=== PATIENT | male | born 1955 | race Caucasian/White ===

== ENCOUNTER 2021-10-25 02:35 | Inpatient (IN) | payer MEDICAID ==
[~2021-10-25] VITALS: Ht 157.5 cm; Wt 100.4 kg
[2021-10-25] MEDS ORDERED: dilTIAZem 25 MG/5 ML VIAL IV ONE ×2 (02:45→02:47)
[2021-10-25 03:27] LABS: Basophils # (auto) 0 10 ^3/uL (0-0.2); Eosinophils # (auto) 0.2 10 ^3/uL (0-0.8); Hemoglobin 13.8 g/dL (13.5-17.5); Mean Corpuscular Hemoglobin 26.8 pg (28.0-32.0); Mean Corpuscular Hgb Conc. 32.8 g/dL (32.0-36.0); Neutrophils # (auto) 5.6 10 ^3/uL (1.6-8.6); White Blood Cell 8.6 10^3/uL (4.4-10.8)
[2021-10-25 03:29] LABS: Basophils % (auto) 0.6 % (0.0-2.0); Eosinophils % (auto) 2.2 % (0.0-7.0); Lymphocytes % (auto) 22.8 % (10.0-50.0); Mean Corpuscular Volume 81.6 fL (80.0-100.0); Monocytes # (auto) 0.7 10 ^3/uL (0-1.3); Monocytes % (auto) 8.7 % (0.0-12.0); Neutrophils % (auto) 65.7 % (37.0-80.0); Nucleated Red Blood Cells % 0.2 %; Red Blood Cells 5.15 10^6/uL (4.5-5.90); Red Cell Distribution Width 15.1 % (11.8-14.3)
[2021-10-25 03:43] LABS: INR 1.01 (0.9-1.15); Partial Thromboplastin Time 25.3 sec (23.6-33.0)
[2021-10-25 03:46] LABS: Albumin 3.9 g/dL (3.4-5.0); Calcium 9.2 mg/dL (8.5-10.1)
[2021-10-25 03:52] LABS: BUN/Creatinine Ratio 15.9; Bilirubin, Total 0.4 mg/dL (0.2-1.0); Total Protein 7.5 g/dL (6.4-8.2)
[2021-10-25] MEDS ORDERED: NITROGLYCERIN 0.4 MG SL TAB SL PRN (05:15)
[2021-10-25] MEDS ORDERED: ONDANSETRON HCL 4 MG/2 ML VIAL IV PRN (05:15)
[2021-10-25] MEDS ORDERED: DEXTROSE (50%) 50ML SYRG IV PRN (05:15)
[2021-10-25] MEDS ORDERED: TEMAZEPAM 15 MG CAP PO PRN (05:15)
[2021-10-25] MEDS ORDERED: MORPHINE SULFATE INJECTION 2 MG/ML SYRG IV PRN (05:15)
[2021-10-25] MEDS ORDERED: CARBIDOPA W LEVODOPA 25/100mg TABLET PO SCH (06:00)
[2021-10-25] MEDS: ACCU-CHEK COMFORT CURVE STRIP VI SCH ×4 (06:37→22:34)
[2021-10-25] MEDS: InsuLIN REG 1unit/0.01ml Soln (100units/ml) SC SCH ×4 (06:37→22:25)
[2021-10-25] MEDS: ACETAMINOPHEN 325 MG TAB PO PRN ×2 (07:34→10:56)
[2021-10-25 10:00] VITALS: BP 142/99
[2021-10-25] MEDS ORDERED: dilTIAZem 120MG ER CAP PO SCH (10:00)
[2021-10-25] MEDS ORDERED: LISINOPRIL 20 MG TAB PO SCH (10:00)
[2021-10-25] MEDS ORDERED: ENOXAPARIN SOD 40 MG/0.4 ML SYRINGE SC SCH (10:00)
[2021-10-25] MEDS ORDERED: METO25TA5 PO (10:31)
[2021-10-25] MEDS ORDERED: ALOG1TAB2 PO (10:31)
[2021-10-25] MEDS ORDERED: INSU1INJ19 SC (10:31)
[2021-10-25] MEDS ORDERED: HYDR-4833 PO (10:31)
[2021-10-25] MEDS ORDERED: DIPH50CA31 PO (10:31)
[2021-10-25] MEDS ORDERED: ALBUAER3 IN (10:31)
[2021-10-25] MEDS ORDERED: TAMS0.4C36 PO (10:31)
[2021-10-25] MEDS ORDERED: ROPI1TAB4 PO (10:31)
[2021-10-25] MEDS ORDERED: DULO60CA PO (10:31)
[2021-10-25] MEDS ORDERED: ARIP1TAB7 PO (10:31)
[2021-10-25] MEDS ORDERED: OMEP20TA PO (10:31)
[2021-10-25] MEDS ORDERED: DILT60TA PO (10:31)
[2021-10-25] MEDS ORDERED: LISI40TA11 PO (10:31)
[2021-10-25] MEDS ORDERED: FURO40TA4 PO (10:31)
[2021-10-25] MEDS ORDERED: METH500T22 PO (10:31)
[2021-10-25] MEDS: METOPROLOL TARTRATE 25 MG TAB PO SCH ×2 (10:46→22:30)
[2021-10-25] MEDS ORDERED: HYDROcodone-ACET 5/325MG TAB PO PRN (11:45)
[2021-10-25] MEDS ORDERED: ENOXAPARIN SOD 60 MG/0.6 ML SYRINGE SC ONE (12:00)
[2021-10-25] MEDS ORDERED: APIX5TAB OR (12:01)
[2021-10-25 13:00] VITALS: BP 146/116
[2021-10-25] MEDS: ROPINIROLE 1 MG PO SCH ×2 (14:00→22:00)
[2021-10-25 17:00] VITALS: BP 123/76
[2021-10-25] MEDS ORDERED: TAMSULOSIN HYDROCHLORIDE 0.4 MG CAP PO SCH (18:00)
[2021-10-25 19:30] VITALS: BP 143/67
[2021-10-25 21:27] VITALS: BP 143/67
[2021-10-25 22:00] VITALS: BP 143/67
[2021-10-25] MEDS ORDERED: ENOXAPARIN SOD 100 MG/1 ML SYRINGE SC SCH (22:00)
[2021-10-26] MEDS ORDERED: PANTOPRAZOLE 40 MG TAB PO SCH (06:00)
== END 2021-10-25 23:49 | disposition home or self-care (01) | DRG 201 ==
LOC: ER 02:35 → EDBD 02:35 → TELE 05:13 → TELE-WESTW 10:35
PROVIDERS: ADMIT Nurse Practitioner; ATTEND Internal Medicine
DX: I48.91 Unspecified atrial fibrillation (principal); E11.22 Type 2 diabetes mellitus with diabetic chronic kidney disease; G20 Parkinson's disease; E11.9 Type 2 diabetes mellitus without complications; I10 Essential (primary) hypertension; N18.9 Chronic kidney disease, unspecified; E66.01 Morbid (severe) obesity due to excess calories; F31.9 Bipolar disorder, unspecified; I12.9 Hypertensive chronic kidney disease with stage 1 through stage 4 chronic kidney disease, or unspecified chronic kidney disease; K21.9 Gastro-esophageal reflux disease without esophagitis; N18.30 Chronic kidney disease, stage 3 unspecified; N40.0 Benign prostatic hyperplasia without lower urinary tract symptoms; Z68.39 Body mass index [BMI] 39.0-39.9, adult; Z88.8 Allergy status to other drugs, medicaments and biological substances; Z20.822 Contact with and (suspected) exposure to COVID-19
CPT/HCPCS: 36415; 71045; 80053; 82962; 83880; 84443; 84484; 85025; 85610; 85730; 87426; 93005; 93306; 96372; 96374; 99291; G0378; J1815

== ENCOUNTER 2022-12-19 15:11 | Inpatient (IN) | payer BC, MEDICAID ==
[~2022-12-19] VITALS: Ht 157.5 cm; Wt 101.3 kg
[~2022-12-19 15:11] MED LIST: ALBUAER3 IN; ALOG1TAB2 PO; APIX5TAB OR; ARIP1TAB7 PO; DILT60TA PO; DIPH50CA31 PO; DULO60CA PO; FURO40TA4 PO; HYDR-4833 PO; INSU1INJ19 SC; LISI40TA11 PO; METH500T22 PO; METO25TA5 PO; OMEP20TA PO; ROPI1TAB4 PO; TAMS0.4C36 PO
[2022-12-19] MEDS ORDERED: NOREPINEPHRINE 8 MG/250ML KIT 250 ML IV ONE (15:41)
[2022-12-19] MEDS: NOREPINEPHRINE 8 MG/250ML KIT 250 ML IV SCH (15:51)
[2022-12-19 16:56] LABS: Monocytes # (auto) 1.2 10 ^3/uL (0-1.3); Monocytes % (auto) 9.6 % (0.0-12.0); Neutrophils # (auto) 8.5 10 ^3/uL (1.6-8.6); Neutrophils % (auto) 70.7 % (37.0-80.0); Nucleated Red Blood Cells % 0.2 %
[2022-12-19 16:58] LABS: Basophils # (auto) 0.1 10 ^3/uL (0-0.2); Basophils % (auto) 0.5 % (0.0-2.0); Eosinophils # (auto) 0.4 10 ^3/uL (0-0.8); Eosinophils % (auto) 3.6 % (0.0-7.0); Hemoglobin 10.8 g/dL (13.5-17.5); Lymphocytes # (auto) 1.9 10 ^3/uL (0.4-5.4); Lymphocytes % (auto) 15.6 % (10.0-50.0); Mean Corpuscular Hemoglobin 24.3 pg (28.0-32.0); Mean Corpuscular Hgb Conc. 31.6 g/dL (32.0-36.0); Mean Corpuscular Volume 76.9 fL (80.0-100.0); Red Blood Cells 4.42 10^6/uL (4.5-5.90); Red Cell Distribution Width 17.6 % (11.8-14.3)
[2022-12-19 17:12] LABS: Albumin 3.3 g/dL (3.4-5.0); Anion Gap 10 (5-15); BUN/Creatinine Ratio 14.1; Blood Urea Nitrogen 61 mg/dL (7-18); Calcium 9.9 mg/dL (8.5-10.1); Carbon Dioxide 29 mmol/L (21-32); Chloride 90 mmol/L (98-107); GFR African American 18 mL/min; GFR Non-African American 15 mL/min; Glucose 161 mg/dL (74-106); Potassium 3.6 mmol/L (3.5-5.1); Sodium 129 mmol/L (136-145)
[2022-12-19 17:15] LABS: Alanine Aminotransferase < 6 U/L (16-61); Alkaline Phosphatase 87 U/L (45-117); Aspartate Aminotransferase 7 U/L (15-37); Bilirubin, Total 0.5 mg/dL (0.2-1.0); Total Protein 5.7 g/dL (6.4-8.2)
[2022-12-19] MEDS ORDERED: CARB25TA75 PO (20:24)
[2022-12-19] MEDS ORDERED: DEXTROSE (50%) 50ML SYRG IV PRN (20:45)
[2022-12-19] MEDS ORDERED: MORPHINE SULFATE INJ 2 MG/ml SYRG IV PRN (20:45)
[2022-12-19] MEDS ORDERED: NITROGLYCERIN 0.4 MG SL TAB SL PRN (20:45)
[2022-12-19] MEDS ORDERED: ONDANSETRON HCL 4 MG/2 ML VIAL IV PRN (20:45)
[2022-12-19] MEDS: APIXABAN 5 MG TAB PO SCH (22:24)
[2022-12-19] MEDS: CARBIDOPA W LEVODOPA 25/100mg TABLET PO SCH (22:24)
[2022-12-19] MEDS: ACCU-CHEK COMFORT CURVE STRIP VI SCH (22:35)
[2022-12-19] MEDS: InsuLIN REG 1unit/0.01ml Soln (100units/ml) SC SCH (22:35)
[2022-12-19 23:04] LABS: Urine Bacteria FEW /hpf (None Seen); Urine Blood Negative /uL (Negative); Urine Hyaline Cast FEW /lpf (0 - 2); Urine Specific Gravity 1.008 (1.001-1.035); Urine WBC 1 /hpf (0 - 3)
[2022-12-19] MEDS: ACETAMINOPHEN 325 MG TAB PO PRN (23:51)
[2022-12-20 05:00] LABS: Eosinophils # (auto) 0.6 10 ^3/uL (0-0.8); Hemoglobin 11.8 g/dL (13.5-17.5); Mean Corpuscular Volume 75.9 fL (80.0-100.0)
[2022-12-20 05:01] LABS: Basophils # (auto) 0.1 10 ^3/uL (0-0.2); Basophils % (auto) 0.5 % (0.0-2.0); Eosinophils % (auto) 4.8 % (0.0-7.0); Hematocrit 36.7 % (41.0-53.0); Lymphocytes # (auto) 1.5 10 ^3/uL (0.4-5.4); Lymphocytes % (auto) 12.2 % (10.0-50.0); Mean Corpuscular Hemoglobin 24.3 pg (28.0-32.0); Mean Corpuscular Hgb Conc. 32.1 g/dL (32.0-36.0); Monocytes % (auto) 8.8 % (0.0-12.0); Neutrophils # (auto) 8.7 10 ^3/uL (1.6-8.6); Neutrophils % (auto) 73.7 % (37.0-80.0); Red Blood Cells 4.83 10^6/uL (4.5-5.90); Red Cell Distribution Width 17.5 % (11.8-14.3); White Blood Cell 11.9 10^3/uL (4.4-10.8)
[2022-12-20 05:11] LABS: Potassium 3.2 mmol/L (3.5-5.1)
[2022-12-20 05:15] LABS: Albumin 3.5 g/dL (3.4-5.0); BUN/Creatinine Ratio 16.7; Calcium 9.7 mg/dL (8.5-10.1)
[2022-12-20 05:28] LABS: Bilirubin, Total 0.4 mg/dL (0.2-1.0); Total Protein 6.3 g/dL (6.4-8.2)
[2022-12-20] MEDS ORDERED: FUROSEMIDE 40 MG TAB PO SCH (06:00)
[2022-12-20] MEDS: CARBIDOPA W LEVODOPA 25/100mg TABLET PO SCH ×3 (06:11→22:12)
[2022-12-20] MEDS: InsuLIN REG 1unit/0.01ml Soln (100units/ml) SC SCH ×4 (07:05→22:14)
[2022-12-20] MEDS: ACCU-CHEK COMFORT CURVE STRIP VI SCH ×4 (07:05→22:12)
[2022-12-20] MEDS: PANTOPRAZOLE 40 MG TAB PO SCH (10:52)
[2022-12-20] MEDS: APIXABAN 5 MG TAB PO SCH ×2 (10:52→22:12)
[2022-12-20] MEDS: ACETAMINOPHEN 325 MG TAB PO PRN ×2 (10:55→22:20)
[2022-12-20] MEDS: NOREPINEPHRINE 8 MG/250ML KIT 250 ML IV SCH (10:56)
[2022-12-20] MEDS: DULoxetine HCL 30 MG CAP PO SCH (11:47)
[2022-12-20 18:16] LABS: Calcium 9.8 mg/dL (8.5-10.1); Potassium 3.2 mmol/L (3.5-5.1)
[2022-12-20 18:18] LABS: BUN/Creatinine Ratio 20.5
[2022-12-21] MEDS ORDERED: METOPROLOL TARTRATE 1MG/1ML-5ML VIAL IV ONE (03:30)
[2022-12-21] MEDS: AMIODARONE HCL 200 MG TAB PO SCH ×2 (04:09→22:00)
[2022-12-21] MEDS ORDERED: AMIODARONE HCL 150 MG in D5W 5% 100 ML IV ONE (05:30)
[2022-12-21 05:36] LABS: BUN/Creatinine Ratio 19.8; Potassium 3.3 mmol/L (3.5-5.1)
[2022-12-21] MEDS ORDERED: AMIODARONE HCL (50 MG/ ML) 3 ML VIAL IV ONE (05:38)
[2022-12-21] MEDS ORDERED: AMIODARONE 450mg/250ml AE 250 ML IV SCH (06:30)
[2022-12-21] MEDS: CARBIDOPA W LEVODOPA 25/100mg TABLET PO SCH ×3 (06:33→22:48)
[2022-12-21] MEDS: ACCU-CHEK COMFORT CURVE STRIP VI SCH ×4 (06:53→22:51)
[2022-12-21] MEDS: InsuLIN REG 1unit/0.01ml Soln (100units/ml) SC SCH ×4 (06:54→22:53)
[2022-12-21] MEDS ORDERED: dilTIAZem 25 MG/5 ML VIAL IV ONE (09:00)
[2022-12-21] MEDS: PANTOPRAZOLE 40 MG TAB PO SCH (09:53)
[2022-12-21] MEDS: FUROSEMIDE 40 MG TAB PO SCH (09:53)
[2022-12-21] MEDS: APIXABAN 5 MG TAB PO SCH ×2 (09:53→22:48)
[2022-12-21] MEDS: DULoxetine HCL 30 MG CAP PO SCH (09:53)
[2022-12-21] MEDS: POTASSIUM CHL 20MEQ/100ML 100 ML IV SCH ×3 (10:51→13:45)
[2022-12-21] MEDS: AMIODARONE 450mg/250ml AE 250 ML IV SCH (14:35)
[2022-12-21] MEDS: NOREPINEPHRINE 8 MG/250ML KIT 250 ML IV SCH ×2 (16:27→19:58)
[2022-12-21] MEDS: CHOLECALCIFEROL (VITD3) 1,000UNIT=25mCg TAB PO SCH (20:10)
[2022-12-21] MEDS ORDERED: LIDOCAINE 1% HCL (LOCAL ANESTH.) INJ 20ML MDV ONE (21:58)
[2022-12-21] MEDS ORDERED: fentaNYL CITRATE 100 MCG/2 ML VL IV ONE (22:30)
[2022-12-21] MEDS ORDERED: ONDANSETRON HCL 4 MG/2 ML VIAL IV ONE (22:30)
[2022-12-21 23:37] VITALS: BP 101/63
[2022-12-21 23:52] VITALS: BP 95/59
[2022-12-22] VITALS (67 sets, daily range): BP systolic 88–141; BP diastolic 41–75
[2022-12-22] MEDS: AMIODARONE 450mg/250ml AE 250 ML IV SCH ×2 (03:30→17:00)
[2022-12-22 03:32] LABS: Basophils # (auto) 0 10 ^3/uL (0-0.2); Basophils % (auto) 0.4 % (0.0-2.0); Lymphocytes # (auto) 1.4 10 ^3/uL (0.4-5.4); Red Cell Distribution Width 17.3 % (11.8-14.3)
[2022-12-22 03:35] LABS: Eosinophils # (auto) 0.5 10 ^3/uL (0-0.8); Eosinophils % (auto) 5.9 % (0.0-7.0); Hematocrit 34.4 % (41.0-53.0); Hemoglobin 10.8 g/dL (13.5-17.5); Lymphocytes % (auto) 14.9 % (10.0-50.0); Mean Corpuscular Hemoglobin 24.3 pg (28.0-32.0); Mean Corpuscular Hgb Conc. 31.4 g/dL (32.0-36.0); Mean Corpuscular Volume 77.3 fL (80.0-100.0); Monocytes % (auto) 10.9 % (0.0-12.0); Neutrophils # (auto) 6.3 10 ^3/uL (1.6-8.6); Neutrophils % (auto) 67.9 % (37.0-80.0); Nucleated Red Blood Cells % 0.1 %; Red Blood Cells 4.45 10^6/uL (4.5-5.90); White Blood Cell 9.2 10^3/uL (4.4-10.8)
[2022-12-22 03:47] LABS: BUN/Creatinine Ratio 17.7; Calcium 9.3 mg/dL (8.5-10.1); Magnesium 2.7 mg/dL (1.6-2.6); Potassium 3.5 mmol/L (3.5-5.1)
[2022-12-22] MEDS: ACETAMINOPHEN 325 MG TAB PO PRN ×2 (04:44→21:59)
[2022-12-22] MEDS: CARBIDOPA W LEVODOPA 25/100mg TABLET PO SCH ×3 (06:19→21:58)
[2022-12-22] MEDS: ACCU-CHEK COMFORT CURVE STRIP VI SCH ×4 (06:26→21:59)
[2022-12-22] MEDS: InsuLIN REG 1unit/0.01ml Soln (100units/ml) SC SCH ×4 (06:26→22:12)
[2022-12-22] MEDS: FUROSEMIDE 40 MG TAB PO SCH (09:44)
[2022-12-22] MEDS: PANTOPRAZOLE 40 MG TAB PO SCH (09:44)
[2022-12-22] MEDS: DULoxetine HCL 30 MG CAP PO SCH (09:44)
[2022-12-22] MEDS: CHOLECALCIFEROL (VITD3) 1,000UNIT=25mCg TAB PO SCH (09:45)
[2022-12-22] MEDS: APIXABAN 5 MG TAB PO SCH ×2 (09:45→21:57)
[2022-12-22] MEDS: POTASSIUM CHL 20MEQ/100ML 100 ML IV SCH ×2 (12:40→15:38)
[2022-12-22] MEDS: DOCUSATE SOD 100 MG CAP PO PRN (16:40)
[2022-12-23] VITALS (30 sets, daily range): BP systolic 88–132; BP diastolic 51–85
[2022-12-23] MEDS ORDERED: METOPROLOL TARTRATE 1MG/1ML-5ML VIAL IV ONE (04:15)
[2022-12-23] MEDS: ACCU-CHEK COMFORT CURVE STRIP VI SCH ×4 (06:33→21:32)
[2022-12-23] MEDS: CARBIDOPA W LEVODOPA 25/100mg TABLET PO SCH ×3 (06:33→21:23)
[2022-12-23] MEDS: InsuLIN REG 1unit/0.01ml Soln (100units/ml) SC SCH ×4 (06:37→21:33)
[2022-12-23] MEDS: APIXABAN 5 MG TAB PO SCH ×2 (09:01→21:23)
[2022-12-23] MEDS: PANTOPRAZOLE 40 MG TAB PO SCH (09:02)
[2022-12-23] MEDS: CHOLECALCIFEROL (VITD3) 1,000UNIT=25mCg TAB PO SCH (09:02)
[2022-12-23] MEDS: FUROSEMIDE 40 MG TAB PO SCH (09:02)
[2022-12-23 09:31] LABS: Basophils # (auto) 0.1 10 ^3/uL (0-0.2); Monocytes # (auto) 0.8 10 ^3/uL (0-1.3)
[2022-12-23 09:34] LABS: Basophils % (auto) 0.6 % (0.0-2.0); Eosinophils # (auto) 0.5 10 ^3/uL (0-0.8); Eosinophils % (auto) 5.5 % (0.0-7.0); Hematocrit 37.4 % (41.0-53.0); Hemoglobin 11.8 g/dL (13.5-17.5); Lymphocytes # (auto) 1.7 10 ^3/uL (0.4-5.4); Lymphocytes % (auto) 17.8 % (10.0-50.0); Mean Corpuscular Hemoglobin 24.7 pg (28.0-32.0); Mean Corpuscular Hgb Conc. 31.6 g/dL (32.0-36.0); Monocytes % (auto) 8.7 % (0.0-12.0); Neutrophils # (auto) 6.4 10 ^3/uL (1.6-8.6); Neutrophils % (auto) 67.4 % (37.0-80.0); Nucleated Red Blood Cells % 0.3 %; Red Cell Distribution Width 17.6 % (11.8-14.3); White Blood Cell 9.5 10^3/uL (4.4-10.8)
[2022-12-23] MEDS: AMIODARONE 450mg/250ml AE 250 ML IV SCH (09:42)
[2022-12-23] MEDS: DULoxetine HCL 30 MG CAP PO SCH (09:42)
[2022-12-23 09:50] LABS: Albumin 3.4 g/dL (3.4-5.0); Calcium 9.8 mg/dL (8.5-10.1); Potassium 3.9 mmol/L (3.5-5.1)
[2022-12-23 09:56] LABS: BUN/Creatinine Ratio 16.8; Bilirubin, Total 0.3 mg/dL (0.2-1.0); Total Protein 6.4 g/dL (6.4-8.2)
[2022-12-23] MEDS ORDERED: LABETALOL HCL 5 MG/ML 4ML SYRINGE IV PRN (12:15)
[2022-12-23] MEDS: DOCUSATE SOD 100 MG CAP PO PRN (13:14)
[2022-12-23] MEDS: METOPROLOL TARTRATE 25 MG TAB PO SCH ×2 (13:14→21:23)
[2022-12-23] MEDS ORDERED: LACTULOSE 20Gm/30ML SOLN PO ONE (13:15)
[2022-12-23] MEDS: NOREPINEPHRINE 8 MG/250ML KIT 250 ML IV SCH (16:00)
[2022-12-23] MEDS: ACETAMINOPHEN 325 MG TAB PO PRN (20:29)
[2022-12-23] MEDS: LACTULOSE 20Gm/30ML SOLN PO SCH (21:24)
[2022-12-24 05:00] VITALS: BP 124/62
[2022-12-24] MEDS: CARBIDOPA W LEVODOPA 25/100mg TABLET PO SCH ×3 (06:09→21:19)
[2022-12-24] MEDS: ACCU-CHEK COMFORT CURVE STRIP VI SCH ×4 (06:16→21:31)
[2022-12-24] MEDS: InsuLIN REG 1unit/0.01ml Soln (100units/ml) SC SCH ×4 (06:17→21:33)
[2022-12-24 09:00] VITALS: BP 110/70
[2022-12-24] MEDS: LACTULOSE 20Gm/30ML SOLN PO SCH ×2 (09:45→21:22)
[2022-12-24] MEDS: PANTOPRAZOLE 40 MG TAB PO SCH (09:46)
[2022-12-24] MEDS: DULoxetine HCL 30 MG CAP PO SCH (09:46)
[2022-12-24] MEDS: METOPROLOL TARTRATE 25 MG TAB PO SCH ×2 (09:46→21:20)
[2022-12-24] MEDS: APIXABAN 5 MG TAB PO SCH ×2 (09:46→21:19)
[2022-12-24] MEDS: CHOLECALCIFEROL (VITD3) 1,000UNIT=25mCg TAB PO SCH (09:47)
[2022-12-24] MEDS: ACETAMINOPHEN 325 MG TAB PO PRN ×2 (09:57→20:44)
[2022-12-24 13:00] VITALS: BP 131/75
[2022-12-24] MEDS ORDERED: AMIODARONE HCL 200 MG TAB PO ONE (13:45)
[2022-12-24 17:00] VITALS: BP 141/60
[2022-12-24 21:28] VITALS: BP 136/74
[2022-12-25 04:26] VITALS: BP 104/63
[2022-12-25] MEDS: CARBIDOPA W LEVODOPA 25/100mg TABLET PO SCH ×3 (05:49→21:44)
[2022-12-25] MEDS: ACCU-CHEK COMFORT CURVE STRIP VI SCH ×4 (07:11→22:05)
[2022-12-25] MEDS: InsuLIN REG 1unit/0.01ml Soln (100units/ml) SC SCH ×4 (07:12→22:05)
[2022-12-25 07:18] LABS: Basophils # (auto) 0.1 10 ^3/uL (0-0.2); Monocytes # (auto) 1.1 10 ^3/uL (0-1.3); Monocytes % (auto) 9.4 % (0.0-12.0); Nucleated Red Blood Cells % 0.1 %
[2022-12-25 07:20] LABS: Basophils % (auto) 0.7 % (0.0-2.0); Eosinophils # (auto) 0.5 10 ^3/uL (0-0.8); Eosinophils % (auto) 4.6 % (0.0-7.0); Hematocrit 40.6 % (41.0-53.0); Hemoglobin 12.6 g/dL (13.5-17.5); Lymphocytes # (auto) 2.4 10 ^3/uL (0.4-5.4); Lymphocytes % (auto) 20.9 % (10.0-50.0); Mean Corpuscular Hemoglobin 24.2 pg (28.0-32.0); Neutrophils # (auto) 7.3 10 ^3/uL (1.6-8.6); Neutrophils % (auto) 64.4 % (37.0-80.0); Red Cell Distribution Width 17.4 % (11.8-14.3); White Blood Cell 11.3 10^3/uL (4.4-10.8)
[2022-12-25 07:39] LABS: BUN/Creatinine Ratio 16.2; Magnesium 1.9 mg/dL (1.6-2.6); Potassium 4.2 mmol/L (3.5-5.1)
[2022-12-25 08:15] VITALS: BP 101/65
[2022-12-25] MEDS: LACTULOSE 20Gm/30ML SOLN PO SCH ×2 (08:22→21:44)
[2022-12-25] MEDS: DULoxetine HCL 30 MG CAP PO SCH (08:23)
[2022-12-25] MEDS: AMIODARONE HCL 200 MG TAB PO SCH (08:23)
[2022-12-25] MEDS: METOPROLOL TARTRATE 25 MG TAB PO SCH ×2 (08:24→21:47)
[2022-12-25] MEDS: APIXABAN 5 MG TAB PO SCH ×2 (08:24→21:43)
[2022-12-25] MEDS: PANTOPRAZOLE 40 MG TAB PO SCH (08:24)
[2022-12-25] MEDS: CHOLECALCIFEROL (VITD3) 1,000UNIT=25mCg TAB PO SCH (08:25)
[2022-12-25] MEDS ORDERED: dilTIAZem 25 MG/5 ML VIAL IV ONE (12:30)
[2022-12-25] MEDS ORDERED: MAGNESIUM OXIDE 400 MG TAB PO ONE (12:30)
[2022-12-25 13:00] VITALS: BP 118/68
[2022-12-25 17:47] VITALS: BP 131/97
[2022-12-25 22:00] VITALS: BP 106/72
[2022-12-25] MEDS: ACETAMINOPHEN 325 MG TAB PO PRN (23:35)
[2022-12-26 05:00] VITALS: BP 107/73
[2022-12-26] MEDS: CARBIDOPA W LEVODOPA 25/100mg TABLET PO SCH ×3 (05:48→21:12)
[2022-12-26] MEDS: InsuLIN REG 1unit/0.01ml Soln (100units/ml) SC SCH ×4 (06:21→22:06)
[2022-12-26] MEDS: ACCU-CHEK COMFORT CURVE STRIP VI SCH ×4 (06:22→22:06)
[2022-12-26 09:07] VITALS: BP 127/60
[2022-12-26] MEDS: AMIODARONE HCL 200 MG TAB PO SCH (09:57)
[2022-12-26] MEDS: DULoxetine HCL 30 MG CAP PO SCH (09:58)
[2022-12-26] MEDS: PANTOPRAZOLE 40 MG TAB PO SCH (09:58)
[2022-12-26] MEDS: APIXABAN 5 MG TAB PO SCH ×2 (09:59→21:13)
[2022-12-26] MEDS: METOPROLOL TARTRATE 25 MG TAB PO SCH ×2 (10:00→21:12)
[2022-12-26] MEDS: LACTULOSE 20Gm/30ML SOLN PO SCH ×2 (10:00→21:13)
[2022-12-26] MEDS: CHOLECALCIFEROL (VITD3) 1,000UNIT=25mCg TAB PO SCH (10:04)
[2022-12-26 13:00] VITALS: BP 118/72
[2022-12-26 16:20] VITALS: BP 126/75
[2022-12-26 22:00] VITALS: BP 120/61
[2022-12-27] MEDS: ACETAMINOPHEN 325 MG TAB PO PRN (01:45)
[2022-12-27 05:00] VITALS: BP 134/65
[2022-12-27] MEDS: CARBIDOPA W LEVODOPA 25/100mg TABLET PO SCH ×2 (05:40→14:25)
[2022-12-27] MEDS: InsuLIN REG 1unit/0.01ml Soln (100units/ml) SC SCH ×2 (06:12→11:42)
[2022-12-27] MEDS: ACCU-CHEK COMFORT CURVE STRIP VI SCH ×2 (06:12→11:30)
[2022-12-27] MEDS: LACTULOSE 20Gm/30ML SOLN PO SCH (08:49)
[2022-12-27] MEDS: DULoxetine HCL 30 MG CAP PO SCH (08:50)
[2022-12-27] MEDS: CHOLECALCIFEROL (VITD3) 1,000UNIT=25mCg TAB PO SCH (08:50)
[2022-12-27] MEDS: PANTOPRAZOLE 40 MG TAB PO SCH (08:50)
[2022-12-27] MEDS: APIXABAN 5 MG TAB PO SCH (08:50)
[2022-12-27] MEDS: AMIODARONE HCL 200 MG TAB PO SCH (08:50)
[2022-12-27] MEDS: METOPROLOL TARTRATE 25 MG TAB PO SCH (08:51)
[2022-12-27 09:00] VITALS: BP 141/89
[2022-12-27 13:00] VITALS: BP 138/77
[2022-12-27] MEDS ORDERED: MET25T PO (13:10)
[2022-12-27 13:30] VITALS: BP 138/77
== END 2022-12-27 15:00 | disposition home health service (06) | DRG 314 ==
LOC: ER 15:11 → EDBD 15:11 → TELE 20:51 → ICU WEST 12-21 22:47 → TELE-WESTW 12-23 16:54
PROVIDERS: ADMIT Nurse Practitioner; ATTEND Internal Medicine
PROC: 02HV33Z Insertion of Infusion Device into Superior Vena Cava, Percutaneous Approach (ICD-10-PCS; principal; 2022-12-21)
PROC: B548ZZA Ultrasonography of Superior Vena Cava, Guidance (ICD-10-PCS; 2022-12-21)
DX: I95.9 Hypotension, unspecified (principal); N17.0 Acute kidney failure with tubular necrosis; I13.0 Hypertensive heart and chronic kidney disease with heart failure and stage 1 through stage 4 chronic kidney disease, or unspecified chronic kidney disease; I50.32 Chronic diastolic (congestive) heart failure; Z68.41 Body mass index [BMI] 40.0-44.9, adult; I48.91 Unspecified atrial fibrillation; D63.1 Anemia in chronic kidney disease; E11.22 Type 2 diabetes mellitus with diabetic chronic kidney disease; I25.10 Atherosclerotic heart disease of native coronary artery without angina pectoris; N18.31 Chronic kidney disease, stage 3a; G20 Parkinson's disease; F41.9 Anxiety disorder, unspecified; E66.9 Obesity, unspecified; D72.829 Elevated white blood cell count, unspecified; E87.6 Hypokalemia; E11.65 Type 2 diabetes mellitus with hyperglycemia; Z79.01 Long term (current) use of anticoagulants; Z79.4 Long term (current) use of insulin; Z88.8 Allergy status to other drugs, medicaments and biological substances
CPT/HCPCS: 36415; 71045; 76775; 80048; 80053; 81001; 82306; 82962; 83605; 83735; 83970; 84100; 84443; 84484; 85025; 87040; 87426; 93005; 93306; 97110; 97116; 97163; 97530; 99291; G0378; J1815; J2001; J2405; J3480; J7060

== ENCOUNTER 2023-02-14 18:14 | Inpatient (IN) | payer BC, MEDICAID ==
[~2023-02-14] VITALS: Ht 157.5 cm; Wt 90.0 kg
[~2023-02-14 18:14] MED LIST changes: +CARB25TA75 PO; +MET25T PO; -METO25TA5 PO
[2023-02-14] MEDS ORDERED: ONDANSETRON HCL 4 MG/2 ML VIAL IV ONE (19:30)
[2023-02-14] MEDS ORDERED: GLUCAGON EMERG KIT 1mg/1ml IV ONE (19:30)
[2023-02-14 19:50] LABS: Eosinophils # (auto) 0.3 10 ^3/uL (0-0.8); Mean Corpuscular Volume 74.4 fL (80.0-100.0); Monocytes # (auto) 0.9 10 ^3/uL (0-1.3); White Blood Cell 9.8 10^3/uL (4.4-10.8)
[2023-02-14 19:52] LABS: Basophils # (auto) 0 10 ^3/uL (0-0.2); Basophils % (auto) 0.5 % (0.0-2.0); Eosinophils % (auto) 3.3 % (0.0-7.0); Hematocrit 29.1 % (41.0-53.0); Hemoglobin 9.5 g/dL (13.5-17.5); Lymphocytes % (auto) 10.3 % (10.0-50.0); Mean Corpuscular Hemoglobin 24.2 pg (28.0-32.0); Mean Corpuscular Hgb Conc. 32.5 g/dL (32.0-36.0); Monocytes % (auto) 8.7 % (0.0-12.0); Neutrophils # (auto) 7.6 10 ^3/uL (1.6-8.6); Neutrophils % (auto) 77.2 % (37.0-80.0); Nucleated Red Blood Cells % 0.1 %; Red Blood Cells 3.92 10^6/uL (4.5-5.90); Red Cell Distribution Width 18.1 % (11.8-14.3)
[2023-02-14 20:24] LABS: Albumin 3.4 g/dL (3.4-5.0); Magnesium 2.2 mg/dL (1.6-2.6); Potassium 4.9 mmol/L (3.5-5.1)
[2023-02-14 20:29] LABS: Bilirubin, Total 0.4 mg/dL (0.2-1.0); Total Protein 6.5 g/dL (6.4-8.2)
[2023-02-14] MEDS ORDERED: SODIUM CHLORIDE 0.9% 500 ML IV ONE (21:00)
[2023-02-14] MEDS ORDERED: NITROGLYCERIN 0.4 MG SL TAB SL PRN (21:00)
[2023-02-14] MEDS ORDERED: ACETAMINOPHEN 325 MG TAB PO PRN (21:00)
[2023-02-14] MEDS ORDERED: MORPHINE SULFATE INJ 2 MG/ml SYRG IV PRN (21:00)
[2023-02-14] MEDS ORDERED: ONDANSETRON HCL 4 MG/2 ML VIAL IV PRN (21:00)
[2023-02-14] MEDS ORDERED: DEXTROSE (50%) 50ML SYRG IV PRN (21:00)
[2023-02-14] MEDS: NOREPINEPHRINE 8 MG/250ML KIT 250 ML IV SCH (21:06)
[2023-02-14] MEDS: ACCU-CHEK COMFORT CURVE STRIP VI SCH (22:00)
[2023-02-15] MEDS: ATORVASTATIN 20 MG TAB PO SCH ×2 (00:05→23:08)
[2023-02-15] MEDS: APIXABAN 5 MG TAB PO SCH ×3 (00:05→23:08)
[2023-02-15] MEDS: InsuLIN REG 1unit/0.01ml Soln (100units/ml) SC SCH ×5 (00:13→23:08)
[2023-02-15 00:57] LABS: Urine Bacteria NONE SEEN /hpf (None Seen); Urine Blood Negative /uL (Negative); Urine Hyaline Cast FEW /lpf (0 - 2); Urine WBC <1 /hpf (0 - 3)
[2023-02-15 06:19] LABS: Basophils # (auto) 0 10 ^3/uL (0-0.2); Basophils % (auto) 0.5 % (0.0-2.0); Eosinophils # (auto) 0.4 10 ^3/uL (0-0.8); Hemoglobin 9.5 g/dL (13.5-17.5); Monocytes # (auto) 0.7 10 ^3/uL (0-1.3)
[2023-02-15 06:22] LABS: Eosinophils % (auto) 4.8 % (0.0-7.0); Hematocrit 29.5 % (41.0-53.0); Lymphocytes # (auto) 1.1 10 ^3/uL (0.4-5.4); Lymphocytes % (auto) 13.8 % (10.0-50.0); Mean Corpuscular Hemoglobin 24.5 pg (28.0-32.0); Mean Corpuscular Hgb Conc. 32.1 g/dL (32.0-36.0); Mean Corpuscular Volume 76.4 fL (80.0-100.0); Monocytes % (auto) 9.1 % (0.0-12.0); Neutrophils # (auto) 5.7 10 ^3/uL (1.6-8.6); Neutrophils % (auto) 71.8 % (37.0-80.0); Nucleated Red Blood Cells % 0.2 %; Red Blood Cells 3.86 10^6/uL (4.5-5.90); Red Cell Distribution Width 18.2 % (11.8-14.3); White Blood Cell 7.9 10^3/uL (4.4-10.8)
[2023-02-15 06:42] LABS: Potassium 4.5 mmol/L (3.5-5.1)
[2023-02-15 06:54] LABS: Albumin 3.1 g/dL (3.4-5.0); BUN/Creatinine Ratio 20.9; Calcium 12.7 mg/dL (8.5-10.1)
[2023-02-15 06:57] LABS: Bilirubin, Total 0.4 mg/dL (0.2-1.0); Total Protein 6.7 g/dL (6.4-8.2)
[2023-02-15] MEDS: ACCU-CHEK COMFORT CURVE STRIP VI SCH ×4 (08:55→23:08)
[2023-02-15] MEDS: PANTOPRAZOLE 40 MG TAB PO SCH (10:10)
[2023-02-15 13:43] LABS: Protein, Urine 20.6 mg/dL (0.0-11.9)
[2023-02-15] MEDS: ACETAMINOPHEN/CODEINE#3 (300/30mg) TAB PO PRN ×2 (15:15→23:08)
[2023-02-15] MEDS: NOREPINEPHRINE 8 MG/250ML KIT 250 ML IV SCH (19:30)
[2023-02-16] MEDS: ACCU-CHEK COMFORT CURVE STRIP VI SCH ×4 (07:00→21:39)
[2023-02-16] MEDS: InsuLIN REG 1unit/0.01ml Soln (100units/ml) SC SCH ×4 (08:03→21:43)
[2023-02-16] MEDS: ACETAMINOPHEN/CODEINE#3 (300/30mg) TAB PO PRN ×2 (08:36→18:36)
[2023-02-16] MEDS: APIXABAN 5 MG TAB PO SCH ×2 (08:41→21:39)
[2023-02-16] MEDS: PANTOPRAZOLE 40 MG TAB PO SCH (08:42)
[2023-02-16] MEDS: SODIUM CHLORIDE 0.9% 1,000 ML IV SCH ×2 (11:51→23:32)
[2023-02-16 16:20] VITALS: BP 132/82
[2023-02-16 17:00] VITALS: BP_SYST 130; BP_SYST 137; BP_DIAS 66; BP_DIAS 82
[2023-02-16] MEDS: ATORVASTATIN 20 MG TAB PO SCH (21:39)
[2023-02-16 22:00] VITALS: BP 112/66
[2023-02-17] MEDS: ACETAMINOPHEN/CODEINE#3 (300/30mg) TAB PO PRN ×3 (02:23→16:15)
[2023-02-17 05:00] VITALS: BP 129/77
[2023-02-17] MEDS: SODIUM CHLORIDE 0.9% 1,000 ML IV SCH (06:20)
[2023-02-17] MEDS: ACCU-CHEK COMFORT CURVE STRIP VI SCH ×3 (06:20→17:09)
[2023-02-17] MEDS: InsuLIN REG 1unit/0.01ml Soln (100units/ml) SC SCH ×3 (06:20→17:00)
[2023-02-17 09:00] VITALS: BP 148/66
[2023-02-17] MEDS: PANTOPRAZOLE 40 MG TAB PO SCH (09:17)
[2023-02-17] MEDS: APIXABAN 5 MG TAB PO SCH (09:17)
[2023-02-17 13:00] VITALS: BP 112/68
[2023-02-17 15:52] LABS: Potassium 4.8 mmol/L (3.5-5.1)
[2023-02-17 15:54] LABS: BUN/Creatinine Ratio 19.2
[2023-02-17 16:15] LABS: Calcium 14.1 mg/dL (8.5-10.1)
[2023-02-17] MEDS ORDERED: SODIUM CHLORIDE 0.9% 500 ML IV ONE (16:45)
[2023-02-17 17:06] VITALS: BP 120/70
== END 2023-02-17 20:15 | disposition home or self-care (01) | DRG 308 ==
LOC: EDBD 18:14 → ER 18:14 → TELE 20:56 → TELE-WESTW 02-16 16:24
PROVIDERS: ADMIT Nurse Practitioner; ATTEND Internal Medicine
DX: R00.1 Bradycardia, unspecified (principal); N17.0 Acute kidney failure with tubular necrosis; N18.4 Chronic kidney disease, stage 4 (severe); I95.2 Hypotension due to drugs; Z20.822 Contact with and (suspected) exposure to COVID-19; E10.22 Type 1 diabetes mellitus with diabetic chronic kidney disease; I12.9 Hypertensive chronic kidney disease with stage 1 through stage 4 chronic kidney disease, or unspecified chronic kidney disease; I48.91 Unspecified atrial fibrillation; D63.1 Anemia in chronic kidney disease; G20 Parkinson's disease; G89.29 Other chronic pain; I48.0 Paroxysmal atrial fibrillation; Z79.4 Long term (current) use of insulin; Z79.01 Long term (current) use of anticoagulants; Z98.1 Arthrodesis status; Z79.899 Other long term (current) drug therapy
CPT/HCPCS: 36415; 71045; 76775; 80048; 80053; 81001; 82306; 82570; 82962; 83605; 83735; 83970; 84100; 84156; 84300; 84443; 84484; 85025; 87081; 87426; 93005; 96374; 96375; 97163; 99291; G0378; J1815; J2405

== ENCOUNTER 2023-08-30 09:55 | Inpatient (IN) | payer BC, MEDICAID ==
[~2023-08-30] VITALS: Ht 157.5 cm; Wt 82.5 kg
[~2023-08-30 09:55] MED LIST changes: -ALBUAER3 IN; +CARB-112 PO; -CARB25TA75 PO; -DILT60TA PO; -DIPH50CA31 PO; -DULO60CA PO; +DULO60CA41 PO; -LISI40TA11 PO; -MET25T PO; +METH-1181 PO; -METH500T22 PO
[2023-08-30] MEDS ORDERED: dilTIAZem 25 MG/5 ML VIAL IV ONE (10:15)
[2023-08-30] MEDS ORDERED: ASPirin 325 MG TAB PO ONE (10:15)
[2023-08-30 11:29] LABS: Alkaline Phosphatase 129 U/L (46-116); Anion Gap 19 (5-15); Aspartate Aminotransferase 10 U/L (13-40); BUN/Creatinine Ratio 14.4 (10.0-20.0); Blood Urea Nitrogen 55 mg/dL (9-23); Calcium 9.9 mg/dL (8.7-10.4); Carbon Dioxide 30 mmol/L (20-30); Chloride 79 mmol/L (98-107); Glucose 296 mg/dL (74-106); Sodium 128 mmol/L (136-145)
[2023-08-30 11:30] LABS: Bilirubin, Total 0.5 mg/dL (0.2-1.0); Total Protein 8.1 g/dL (5.7-8.2)
[2023-08-30 11:32] LABS: Eosinophils % (auto) 0.3 % (0.0-7.0); Hemoglobin 12.4 g/dL (13.5-17.5); Neutrophils # (auto) 13.3 10 ^3/uL (1.6-8.6); Red Cell Distribution Width 17.9 % (11.8-14.3)
[2023-08-30 11:35] LABS: Basophils # (auto) 0 10 ^3/uL (0-0.2); Basophils % (auto) 0.3 % (0.0-2.0); Eosinophils # (auto) 0.1 10 ^3/uL (0-0.8); Hematocrit 38.7 % (41.0-53.0); Lymphocytes # (auto) 0.8 10 ^3/uL (0.4-5.4); Lymphocytes % (auto) 5.6 % (10.0-50.0); Mean Corpuscular Hgb Conc. 32.1 g/dL (32.0-36.0); Mean Corpuscular Volume 77.7 fL (80.0-100.0); Monocytes # (auto) 0.7 10 ^3/uL (0-1.3); Monocytes % (auto) 4.9 % (0.0-12.0); Neutrophils % (auto) 88.9 % (37.0-80.0); Nucleated Red Blood Cells % 0.1 %; Red Blood Cells 4.97 10^6/uL (4.5-5.90)
[2023-08-30 11:46] LABS: INR 1.28 (0.9-1.15); Partial Thromboplastin Time 35.9 SEC (24.5-34.5); Prothrombin Time 13.2 sec (9.3-11.8)
[2023-08-30 11:56] LABS: Alanine Aminotransferase < 9 U/L (7-40); Potassium 1.8 mmol/L (3.5-5.1)
[2023-08-30] MEDS ORDERED: SODIUM CHLORIDE 0.9% 500 ML IV ONE (12:15)
[2023-08-30] MEDS: POTASSIUM CHL 20MEQ/100ML 100 ML IV SCH ×4 (12:23→22:52)
[2023-08-30] MEDS ORDERED: SODIUM CHLORIDE 0.9% 1,000 ML IV ONE ×2 (13:30)
[2023-08-30] MEDS ORDERED: PIPERACILLIN-TAZOB 3.375GM 100 ML IV ONE (13:30)
[2023-08-30] MEDS ORDERED: metroNIDAZOLE 500MG/100ML 100 ML IV ONE (13:30)
[2023-08-30] MEDS ORDERED: FLEET ENEMA(ADULT) 135 ML PR ONE (13:30)
[2023-08-30] MEDS ORDERED: ONDANSETRON HCL 4 MG/2 ML VIAL IV PRN ×2 (19:15→21:30)
[2023-08-30 19:30] VITALS: O2SAT 100
[2023-08-30 19:57] LABS: Urine Bacteria NONE SEEN /hpf (None Seen); Urine Blood Negative /uL (Negative); Urine Clarity Clear (Clear); Urine Color Colorless (Yellow); Urine Protein, UAD Negative (Negative); Urine Specific Gravity 1.009 (1.001-1.035); Urine Urobilinogen Normal (Negative); Urine WBC <1 /hpf (0 - 3); Urine pH 6.5 (5.0-8.0)
[2023-08-30] MEDS ORDERED: hydrALAZINE HCL 20 MG/ML VL IV PRN (21:30)
[2023-08-30] MEDS ORDERED: ACETAMINOPHEN 325 MG TAB PO PRN (21:30)
[2023-08-30] MEDS ORDERED: DEXTROSE (50%) 50ML SYRG IV PRN (21:30)
[2023-08-30 21:42] LABS: Anion Gap 11 (5-15); Calcium 8.6 mg/dL (8.7-10.4); Carbon Dioxide 31 mmol/L (20-30)
[2023-08-30 21:47] LABS: BUN/Creatinine Ratio 17.3 (10.0-20.0); Blood Urea Nitrogen 49 mg/dL (9-23)
[2023-08-30] MEDS ORDERED: metroNIDAZOLE 500MG/100ML 100 ML IV SCH (22:00)
[2023-08-30 22:31] LABS: Chloride 92 mmol/L (98-107); Glucose 127 mg/dL (74-106); Sodium 134 mmol/L (136-145)
[2023-08-30 22:32] LABS: Potassium 2.4 mmol/L (3.5-5.1)
[2023-08-30] MEDS: ACCU-CHEK COMFORT CURVE STRIP VI SCH (22:39)
[2023-08-30] MEDS: InsuLIN REG 1unit/0.01ml Soln (100units/ml) SC SCH (22:40)
[2023-08-30] MEDS ORDERED: POTASSIUM CHL 20MEQ/100ML 100 ML IV ONE (23:15)
[2023-08-30 23:30] VITALS: BP 124/73; PULSE 85; RESP 16; TEMP 98.5; O2SAT 98
[2023-08-31] VITALS (15 sets, daily range): BP systolic 100–145; BP diastolic 45–81; PULSE 78–138; RESP 9–40; TEMP 98.1–98.8; O2SAT 94–100
[2023-08-31] MEDS: POTASSIUM CHL 20MEQ/100ML 100 ML IV SCH ×6 (00:59→18:42)
[2023-08-31] MEDS: cefTRIAXone 1GM/50ML D5W 50 ML IV SCH ×2 (02:30→08:55)
[2023-08-31 05:10] LABS: Basophils # (auto) 0 10 ^3/uL (0-0.2); Eosinophils # (auto) 0.2 10 ^3/uL (0-0.8); Mean Corpuscular Hgb Conc. 32.6 g/dL (32.0-36.0); Red Blood Cells 3.96 10^6/uL (4.5-5.90)
[2023-08-31 05:13] LABS: Basophils % (auto) 0.4 % (0.0-2.0); Eosinophils % (auto) 1.6 % (0.0-7.0); Hematocrit 30.5 % (41.0-53.0); Lymphocytes # (auto) 0.9 10 ^3/uL (0.4-5.4); Lymphocytes % (auto) 7.9 % (10.0-50.0); Mean Corpuscular Hemoglobin 25.1 pg (28.0-32.0); Monocytes # (auto) 0.9 10 ^3/uL (0-1.3); Monocytes % (auto) 8.1 % (0.0-12.0); Red Cell Distribution Width 17.7 % (11.8-14.3)
[2023-08-31] MEDS ORDERED: METOPROLOL TARTRATE 1MG/1ML-5ML VIAL IV PRN (05:15)
[2023-08-31] MEDS ORDERED: HEPARIN SODIUM (PORCINE) 5000 UNITS/ML 1ML VIAL SC SCH (06:00)
[2023-08-31] MEDS: metroNIDAZOLE 500MG/100ML 100 ML IV SCH ×3 (06:12→22:59)
[2023-08-31] MEDS: ACCU-CHEK COMFORT CURVE STRIP VI SCH ×4 (06:39→22:00)
[2023-08-31] MEDS: InsuLIN REG 1unit/0.01ml Soln (100units/ml) SC SCH ×4 (06:41→22:00)
[2023-08-31 08:38] LABS: Anion Gap 12 (5-15); Carbon Dioxide 28 mmol/L (20-30); Chloride 97 mmol/L (98-107); Sodium 137 mmol/L (136-145)
[2023-08-31 08:44] LABS: BUN/Creatinine Ratio 15.9 (10.0-20.0); Glucose 176 mg/dL (74-106)
[2023-08-31 08:50] LABS: Blood Urea Nitrogen 36 mg/dL (9-23)
[2023-08-31 08:51] LABS: Potassium 2.2 mmol/L (3.5-5.1)
[2023-08-31] MEDS: POLYETHYLENE GLYCOL 17 GM PWDR PO SCH (08:55)
[2023-08-31] MEDS: LACTULOSE 20Gm/30ML SOLN PO SCH ×2 (08:56→22:00)
[2023-08-31 10:32] LABS: Chloride 98 mmol/L (98-107); Sodium 137 mmol/L (136-145)
[2023-08-31 10:33] LABS: Anion Gap 9 (5-15); Carbon Dioxide 30 mmol/L (20-30)
[2023-08-31 10:34] LABS: Calcium 9.5 mg/dL (8.5-10.1)
[2023-08-31 10:39] LABS: Blood Urea Nitrogen 35 mg/dL (9-23); Glucose 176 mg/dL (74-106)
[2023-08-31] MEDS: MORPHINE SULFATE INJ 2 MG/ml SYRG IV PRN ×2 (10:41→19:01)
[2023-08-31 10:48] LABS: Potassium 2.2 mmol/L (3.5-5.1)
[2023-08-31] MEDS ORDERED: AMIODARONE BOLUS KIT 100 ML IV ONE (11:15)
[2023-08-31] MEDS ORDERED: METOPROLOL TARTRATE 1MG/1ML-5ML VIAL IV ONE (11:15)
[2023-08-31] MEDS ORDERED: AMIODARONE 450mg/250ml AE 250 ML IV SCH (11:30)
[2023-08-31] MEDS ORDERED: MILK OF MAGNESIA 30ML SUSP PO ONE (11:30)
[2023-08-31 11:46] LABS: LDL Cholesterol 45 mg/dL (< 100); Triglycerides 128 mg/dL (< 150)
[2023-08-31 11:48] LABS: Cholesterol 101 mg/dL (< 200); HDL Cholesterol 30 mg/dL (40-59)
[2023-08-31] MEDS: ENOXAPARIN SOD 80 MG/0.8ML SYRINGE SC SCH ×2 (12:08→22:59)
[2023-08-31] MEDS ORDERED: SOD CHL 0.45% 1,000 ML IV ONE (15:15)
[2023-08-31 16:37] LABS: Protein, Urine 22.6 mg/dL (0.0-11.9)
[2023-08-31 16:40] LABS: Creatinine, Urine 36.52 mg/dL (30.0-125.0)
[2023-08-31] MEDS: AMIODARONE 450mg/250ml AE 250 ML IV SCH (18:00)
[2023-08-31] MEDS: AMIODARONE HCL 200 MG TAB PO SCH (23:12)
[2023-09-01] VITALS (25 sets, daily range): BP systolic 101–140; BP diastolic 55–90; PULSE 68–86; RESP 10–25; TEMP 98–98.7; O2SAT 93–100
[2023-09-01] MEDS: MORPHINE SULFATE INJ 2 MG/ml SYRG IV PRN ×3 (04:10→16:31)
[2023-09-01 05:09] LABS: Lymphocytes # (auto) 1.3 10 ^3/uL (0.4-5.4); Neutrophils % (auto) 76.7 % (37.0-80.0)
[2023-09-01 05:10] LABS: Basophils # (auto) 0.1 10 ^3/uL (0-0.2); Basophils % (auto) 0.5 % (0.0-2.0); Eosinophils # (auto) 0.3 10 ^3/uL (0-0.8); Eosinophils % (auto) 2.6 % (0.0-7.0); Hematocrit 29.2 % (41.0-53.0); Hemoglobin 9.6 g/dL (13.5-17.5); Lymphocytes % (auto) 12.1 % (10.0-50.0); Mean Corpuscular Hemoglobin 25.3 pg (28.0-32.0); Mean Corpuscular Hgb Conc. 32.9 g/dL (32.0-36.0); Monocytes # (auto) 0.9 10 ^3/uL (0-1.3); Monocytes % (auto) 8.1 % (0.0-12.0); Neutrophils # (auto) 8.2 10 ^3/uL (1.6-8.6); Red Blood Cells 3.79 10^6/uL (4.5-5.90); Red Cell Distribution Width 17.6 % (11.8-14.3); White Blood Cell 10.7 10^3/uL (4.4-10.8)
[2023-09-01 05:14] LABS: Anion Gap 5 (5-15); Carbon Dioxide 34 mmol/L (20-30); Chloride 98 mmol/L (98-107); Sodium 137 mmol/L (136-145)
[2023-09-01 05:15] LABS: Calcium 9.2 mg/dL (8.7-10.4)
[2023-09-01 05:20] LABS: BUN/Creatinine Ratio 16.3 (10.0-20.0); Glucose 146 mg/dL (74-106); Magnesium 2.1 mg/dL (1.6-2.6)
[2023-09-01 06:04] LABS: Blood Urea Nitrogen 25 mg/dL (9-23); Potassium 2.7 mmol/L (3.5-5.1)
[2023-09-01] MEDS: metroNIDAZOLE 500MG/100ML 100 ML IV SCH ×3 (06:21→21:33)
[2023-09-01] MEDS: ACCU-CHEK COMFORT CURVE STRIP VI SCH ×3 (06:23→16:31)
[2023-09-01] MEDS: InsuLIN REG 1unit/0.01ml Soln (100units/ml) SC SCH ×4 (06:23→22:00)
[2023-09-01] MEDS ORDERED: POTASSIUM CHL 20 Meq TABLET PO ONE (07:00)
[2023-09-01] MEDS: AMIODARONE 450mg/250ml AE 250 ML IV SCH ×2 (07:15→23:30)
[2023-09-01] MEDS: LACTULOSE 20Gm/30ML SOLN PO SCH ×2 (07:31→21:33)
[2023-09-01] MEDS: POLYETHYLENE GLYCOL 17 GM PWDR PO SCH (07:32)
[2023-09-01] MEDS: AMIODARONE HCL 200 MG TAB PO SCH ×2 (07:53→21:33)
[2023-09-01] MEDS: ENOXAPARIN SOD 80 MG/0.8ML SYRINGE SC SCH (07:53)
[2023-09-01] MEDS: cefTRIAXone 1GM/50ML D5W 50 ML IV SCH (07:53)
[2023-09-01] MEDS: POTASSIUM CHL 20MEQ/100ML 100 ML IV SCH ×5 (07:54→18:23)
[2023-09-01] MEDS: APIXABAN 5 MG TAB PO SCH ×2 (08:26→21:33)
[2023-09-01 15:14] LABS: Anion Gap 4 (5-15); Carbon Dioxide 33 mmol/L (20-30); Chloride 98 mmol/L (98-107); Sodium 135 mmol/L (136-145)
[2023-09-01 15:19] LABS: Glucose 188 mg/dL (74-106)
[2023-09-01 15:20] LABS: BUN/Creatinine Ratio 15.3 (10.0-20.0); Blood Urea Nitrogen 23 mg/dL (9-23)
[2023-09-01 15:41] LABS: Potassium 2.9 mmol/L (3.5-5.1)
[2023-09-01] MEDS: SPIRONOLACTONE 25 MG TAB PO SCH (16:30)
[2023-09-01] MEDS ORDERED: POTASSIUM EFFERVESENT TAB 25 MEQ GT ONE (19:15)
[2023-09-02] VITALS (13 sets, daily range): BP systolic 110–148; BP diastolic 57–76; PULSE 71–83; RESP 15–24; TEMP 97.6–98.9; O2SAT 93–100
[2023-09-02] MEDS: ACCU-CHEK COMFORT CURVE STRIP VI SCH ×5 (01:23→22:00)
[2023-09-02 05:23] LABS: Chloride 100 mmol/L (98-107); Potassium 3.4 mmol/L (3.5-5.1); Sodium 137 mmol/L (136-145)
[2023-09-02 05:24] LABS: Anion Gap 4 (5-15); Calcium 9.2 mg/dL (8.7-10.4); Carbon Dioxide 33 mmol/L (20-30)
[2023-09-02 05:29] LABS: BUN/Creatinine Ratio 11.8 (10.0-20.0); Blood Urea Nitrogen 15 mg/dL (9-23); Glucose 123 mg/dL (74-106)
[2023-09-02 05:30] LABS: Basophils # (auto) 0.1 10 ^3/uL (0-0.2); Eosinophils # (auto) 0.4 10 ^3/uL (0-0.8); Eosinophils % (auto) 4.3 % (0.0-7.0); Hemoglobin 9.5 g/dL (13.5-17.5); Lymphocytes # (auto) 1.4 10 ^3/uL (0.4-5.4); Magnesium 1.9 mg/dL (1.6-2.6); Mean Corpuscular Hgb Conc. 32.2 g/dL (32.0-36.0); Monocytes # (auto) 0.7 10 ^3/uL (0-1.3)
[2023-09-02 05:32] LABS: Basophils % (auto) 0.6 % (0.0-2.0); Hematocrit 29.6 % (41.0-53.0); Lymphocytes % (auto) 14.8 % (10.0-50.0); Mean Corpuscular Hemoglobin 24.9 pg (28.0-32.0); Mean Corpuscular Volume 77.3 fL (80.0-100.0); Monocytes % (auto) 7.6 % (0.0-12.0); Neutrophils # (auto) 6.8 10 ^3/uL (1.6-8.6); Neutrophils % (auto) 72.7 % (37.0-80.0); Red Blood Cells 3.83 10^6/uL (4.5-5.90); Red Cell Distribution Width 17.7 % (11.8-14.3); White Blood Cell 9.4 10^3/uL (4.4-10.8)
[2023-09-02] MEDS: SPIRONOLACTONE 25 MG TAB PO SCH ×2 (06:20→18:07)
[2023-09-02] MEDS: MORPHINE SULFATE INJ 2 MG/ml SYRG IV PRN ×3 (06:20→21:48)
[2023-09-02] MEDS: InsuLIN REG 1unit/0.01ml Soln (100units/ml) SC SCH ×4 (06:21→22:13)
[2023-09-02] MEDS: metroNIDAZOLE 500MG/100ML 100 ML IV SCH ×3 (06:21→21:46)
[2023-09-02] MEDS: POLYETHYLENE GLYCOL 17 GM PWDR PO SCH (10:00)
[2023-09-02] MEDS: LACTULOSE 20Gm/30ML SOLN PO SCH ×2 (10:00→22:00)
[2023-09-02] MEDS: cefTRIAXone 1GM/50ML D5W 50 ML IV SCH (10:58)
[2023-09-02] MEDS: APIXABAN 5 MG TAB PO SCH ×2 (11:04→21:47)
[2023-09-02] MEDS: AMIODARONE HCL 200 MG TAB PO SCH ×2 (11:04→21:47)
[2023-09-02] MEDS: HYDROcodone-ACET 5/325MG TAB PO PRN ×2 (11:04→20:13)
[2023-09-02] MEDS ORDERED: POTASSIUM CHL 20 Meq TABLET PO ONE (12:00)
[2023-09-02 19:43] LABS: Chloride 98 mmol/L (98-107); Potassium 4.2 mmol/L (3.5-5.1); Sodium 134 mmol/L (136-145)
[2023-09-02 19:44] LABS: Anion Gap 4 (5-15); Carbon Dioxide 32 mmol/L (20-30)
[2023-09-02 19:45] LABS: Calcium 9.1 mg/dL (8.5-10.1)
[2023-09-02 19:49] LABS: BUN/Creatinine Ratio 13.5 (10.0-20.0); Blood Urea Nitrogen 17 mg/dL (9-23); Glucose 160 mg/dL (74-106)
[2023-09-03] VITALS (8 sets, daily range): BP systolic 115–142; BP diastolic 69–89; PULSE 72–136; RESP 16–20; TEMP 37.3; O2SAT 90–100
[2023-09-03] MEDS: metroNIDAZOLE 500MG/100ML 100 ML IV SCH (06:12)
[2023-09-03] MEDS: MORPHINE SULFATE INJ 2 MG/ml SYRG IV PRN ×2 (06:13→22:13)
[2023-09-03] MEDS: SPIRONOLACTONE 25 MG TAB PO SCH ×2 (06:13→17:48)
[2023-09-03] MEDS: InsuLIN REG 1unit/0.01ml Soln (100units/ml) SC SCH ×4 (06:31→21:58)
[2023-09-03] MEDS: ACCU-CHEK COMFORT CURVE STRIP VI SCH ×4 (06:32→21:56)
[2023-09-03 09:22] LABS: Chloride 98 mmol/L (98-107); Potassium 3.6 mmol/L (3.5-5.1); Sodium 134 mmol/L (136-145)
[2023-09-03 09:23] LABS: Anion Gap 4 (5-15); Calcium 9.1 mg/dL (8.5-10.1); Carbon Dioxide 32 mmol/L (20-30)
[2023-09-03 09:28] LABS: BUN/Creatinine Ratio 11.3 (10.0-20.0); Blood Urea Nitrogen 13 mg/dL (9-23); Glucose 185 mg/dL (74-106)
[2023-09-03] MEDS: AMIODARONE HCL 200 MG TAB PO SCH ×2 (09:51→21:56)
[2023-09-03] MEDS: APIXABAN 5 MG TAB PO SCH ×2 (09:51→21:56)
[2023-09-03] MEDS: POLYETHYLENE GLYCOL 17 GM PWDR PO SCH (09:53)
[2023-09-03] MEDS: LACTULOSE 20Gm/30ML SOLN PO SCH ×2 (09:53→21:59)
[2023-09-03] MEDS ORDERED: POTASSIUM CHL 20 Meq TABLET PO SCH (10:00)
[2023-09-03] MEDS: HYDROcodone-ACET 5/325MG TAB PO PRN ×2 (10:20→17:48)
[2023-09-03 18:12] LABS: COVID19 ANTIGEN SOFIA FIA NEGATIVE (NEGATIVE)
== END 2023-09-03 22:47 | DRG 682 ==
LOC: EDBD 09:55 → ER 09:55 → TELE 21:28 → DOU IN ICU 23:31 → TELE-WESTW 09-02 12:00
PROVIDERS: ADMIT Nurse Practitioner Family; ATTEND Nurse Practitioner Family
PROC: 05HB33Z Insertion of Infusion Device into Right Basilic Vein, Percutaneous Approach (ICD-10-PCS; principal; 2023-08-31)
PROC: B54MZZA Ultrasonography of Right Upper Extremity Veins, Guidance (ICD-10-PCS; 2023-08-31)
DX: N17.0 Acute kidney failure with tubular necrosis (principal); I50.43 Acute on chronic combined systolic (congestive) and diastolic (congestive) heart failure; I13.0 Hypertensive heart and chronic kidney disease with heart failure and stage 1 through stage 4 chronic kidney disease, or unspecified chronic kidney disease; E87.1 Hypo-osmolality and hyponatremia; I48.20 Chronic atrial fibrillation, unspecified; E87.6 Hypokalemia; K82.8 Other specified diseases of gallbladder; N18.32 Chronic kidney disease, stage 3b; E11.22 Type 2 diabetes mellitus with diabetic chronic kidney disease; E11.65 Type 2 diabetes mellitus with hyperglycemia; G89.29 Other chronic pain; E66.9 Obesity, unspecified; Z20.822 Contact with and (suspected) exposure to COVID-19; Z68.33 Body mass index [BMI] 33.0-33.9, adult; Z79.891 Long term (current) use of opiate analgesic; Z79.01 Long term (current) use of anticoagulants; Z82.0 Family history of epilepsy and other diseases of the nervous system; Z83.3 Family history of diabetes mellitus; Z88.8 Allergy status to other drugs, medicaments and biological substances
CPT/HCPCS: 36415; 71045; 74176; 76700; 80048; 80053; 80061; 81001; 82565; 82570; 82962; 83036; 83605; 83735; 83880; 84133; 84156; 84300; 84443; 84484; 85025; 85610; 85730; 87040; 87426; 93005; 96361; 96374; 97110; 97116; 97163; 97530; 99291; G0378; J0696; J1815; J2543; J3480; J3490

== ENCOUNTER → 2025-04-06 | Day surgery (SDC) | payer OTHER, MEDICAID ==
[~2025-04-06] VITALS: Ht 157.5 cm; Wt 112.0 kg
[~2025-04-06] MED LIST changes: +ALBUAER3 IN; +ALEN70SO2 OR; +ALL100T PO; -ALOG1TAB2 PO; -ARIP1TAB7 PO; +ARIP20TA4 PO; +ATOR10TA PO; +CARI-578 PO; -HYDR-4833 PO; +LOSA-534 PO; -METH-1181 PO; +ONDANSETRON HCL 4 MG/2 ML VIAL ONE; +OPIC50CA PO; +OXYC-963 PO; +PHENYLEPHRINE HCL 10 MG/ML VL ONE; +POTA-220 PO; +PROPOFOL 10 MG/ML 20 ML IV ONE; +RASA1TAB4 PO; -ROPI1TAB4 PO; +SITA100T7 PO; +SPIR25TA8 PO; -TAMS0.4C36 PO; +TAMS0.4C39 PO; +VIBE75TA PO; +ceFAZolin 2 GM/D5W50ml 50 ML IV ONE; +fentaNYL CITRATE 100 MCG/2 ML VL ONE
[2025-04-06] MEDS: BUPIVACAINE 0.5% MPF INJ 30ML SDV IJ ONE (07:51)
[2025-04-06] MEDS: LIDOCAINE 1% HCL (LOCAL ANESTH.) INJ 20ML MDV ONE (07:52)
[2025-04-06 08:07] VITALS: PULSE 92; RESP 17; O2SAT 96
[2025-04-06 08:57] VITALS: BP 129/59; PULSE 91; RESP 19; O2SAT 97
--- NOTE | 2025-04-06 10:44 | DVHOP2 ---
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 These in clude but are not limited to complications of anesthesia, postoperative infection, incomplete relief of symptoms, recurrence of symptoms, damage to blood vessels, nerves and tendons, deep venous thrombosis, pulmonary embolism and possible need for repeat surgery in the future. Complications: None Estimated Blood Loss: Less than 5 mL Indications for Surgery: The patient is a 69-year-old with significant contracture of the left for the digit. He had trigger finger on clinical examination. He had similar issues on other fingers which resolved well with surgery. Nonoperative and operative management options were discussed. Surgery in the form of open trigger finger release was recommended with tenolysis of the tendons. Benefits, risks and treatment alternatives were discussed. Specific complications of the surgery such as neurovascular injury, infection, arthrofibrosis, loss of limb or life were discussed. The patient decided to proceed with the surgical option. Name of Procedure Performed Left 4th digit trigger finger release Procedure Details Procedure Details: The patient was identified in the preoperative holding area and the surgical site was marked. The consent was verified. Any last-minute questions or concerns were addressed. The patient was brought into the operating room and placed supine on the operative table. The extremity was prepped and draped in the usual sterile manner. Intravenous antibiotics were given. A timeout was called to confirm the identity of the patient nature of surgery, the site of surgery, the availability of implants and x-rays and allergies to medications. The tourniquet was raised to 200 mm. A small incision was made over the crease over the A1 vashti. This was a vertical incision because of the significant contracture anterior release structures if needed. The skin and the subcutaneous tissue were dissected. The A1 vashti was identified. Dissection was continued proximally and distally to ensure that the neurovascular bundle is out of the way. Appropriate retractors were placed. An incision was made with a scalpel over the A1 vashti. Next, a Metzenbaum scissors was inserted to complete the release proximally as well as distally. Care was taken to ensure that the scissors are only on the vashti and nowhere near the neurovascular bundle are too deep into the tendon. Excellent release was noted. No bowstringing was noted. Small portion of the A2 was also released because of the significant contracture. Almost complete extension of the finger was noted and significant improvement in his range of motion without any triggering was noted. Irrigation was given after release of tourniquet. Skin incision was closed with 4-0 nylon. Sterile dressing was applied. The patient was taken to the recovery. The patient had normal sensation in the distal fingers. The patient was able to move her fingers as tolerated. The patient was comfortable and then discharged home. Condition Good Disposition Home MAULIK FATIMA MD April 06, 2025 10:44
== END | disposition home or self-care (01) ==
LOC: SUR 06:04
PROVIDERS: ATTEND Orthopaedic Surgery Sports Medicine
DX: M65.342 Trigger finger, left ring finger (principal); M62.442 Contracture of muscle, left hand; M81.0 Age-related osteoporosis without current pathological fracture; E11.40 Type 2 diabetes mellitus with diabetic neuropathy, unspecified; K21.9 Gastro-esophageal reflux disease without esophagitis; E66.01 Morbid (severe) obesity due to excess calories; E78.5 Hyperlipidemia, unspecified; E11.22 Type 2 diabetes mellitus with diabetic chronic kidney disease; N18.30 Chronic kidney disease, stage 3 unspecified; J44.89 Other specified chronic obstructive pulmonary disease; I48.91 Unspecified atrial fibrillation; F41.9 Anxiety disorder, unspecified; N40.0 Benign prostatic hyperplasia without lower urinary tract symptoms; Z88.8 Allergy status to other drugs, medicaments and biological substances; Z79.4 Long term (current) use of insulin; Z79.899 Other long term (current) drug therapy; Z98.41 Cataract extraction status, right eye; Z98.890 Other specified postprocedural states; Z79.01 Long term (current) use of anticoagulants; Z68.42 Body mass index [BMI] 45.0-49.9, adult
CPT/HCPCS: 26055; 82962; J0690; J2003; J2371; J2405; J2704; J3010; J3490

== ENCOUNTER 2025-07-13 07:39 | Emergency (ER) | payer OTHER, MEDICAID ==
[~2025-07-13] VITALS: Ht 157.5 cm; Wt 103.2 kg
[~2025-07-13 07:39] MED LIST changes: -ONDANSETRON HCL 4 MG/2 ML VIAL ONE; -PHENYLEPHRINE HCL 10 MG/ML VL ONE; -PROPOFOL 10 MG/ML 20 ML IV ONE; -ceFAZolin 2 GM/D5W50ml 50 ML IV ONE; -fentaNYL CITRATE 100 MCG/2 ML VL ONE
--- NOTE | 2025-07-13 08:25 | ED.PDOC ---
History of Present Illness(SKN HPI Comments 69 y/o M, BIBA, with PMHx of AFib, HTN and DM presents to the ED for CC of uncontrolled oral bleeding. EMS reports, patient is coming from home where he c/o uncontrolled oral bleeding following a check biopsy done at [facility] yesterday (07/12/25). Patient relays, that bleeding was minimal fo llowing procedure and has now worsened as of this morning (07/13/25). Patient comments, that he is currently on blood thinners and still took his medication as indicated. Patient denies dizziness, fatigue, weakness, headache, or nausea. No other symptoms or modifying factors present at this time. Chief Complaint: Wound Check Time Seen by MD: 07:45 Primary Care Provider: DELMIS LAURA History of Present Illness: Nurses Notes, Cable Spooler Notes, Medications, Allergies Allergies: Coded Allergies: Ziprasidone (Verified Allergy, Unknown, 10/25/21) Home Meds Active Scripts Apixaban Base (ELIQUIS) 5 Mg Tab, 5 MG OR DAILY, #60 MG Prov:ASHWIN RICHARDS MD 10/25/21 Reported Medications Spironolactone (Spironolactone) 25 Mg Tab, 25 MG PO DAILY, TAB 04/05/25 Potassium Chloride (Klor-Con M20) 20 Meq Tab, 20 MEQ PO DAILY, TAB 04/05/25 Losartan Potassium (Losartan Potassium) 50 Mg Tab, 50 MG PO BID, TAB 04/05/25 Allopurinol (ZYLOPRIM TABLET) 100 Mg Tb, 100 MG PO DAILY, TAB 04/05/25 Vibegron (Gemtesa) 75 Mg Tab, 75 MG PO DAILY, TAB 04/05/25 Rasagiline Mesylate (Rasagiline Mesylate) 1 Mg Tab, 1 MG PO DAILY, TAB 04/05/25 Opicapone (Ongentys) 50 Mg Cap, 50 MG PO DAILY, CAP 04/05/25 Atorvastatin Calcium (Lipitor) 10 Mg Tab, 10 MG PO DAILY, TAB 04/05/25 Albuterol Sulfate (VENTOLIN MDI) 90 Mcg Ih, 90 MCG IN QIDP, INH 04/05/25 Oxycodone W/ Acetaminophen (Oxycodone/Acetaminophen 10-300 mg) 1 Tab Tab, 1 TAB PO TIDPRN, TAB 04/05/25 Carisoprodol (Carisoprodol) 350 Mg Tab, 350 MG PO TIDPRN PRN for MUSCLE SPASMS, TAB 04/05/25 Alendronate Sodium (ALENDRONATE SODIUM) 70 Mg/75 Ml Heidy, 70 MG OR QWEEKLY, ML 04/05/25 Sitagliptin Phosphate (Januvia) 100 Mg Tab, 100 MG PO DAILY, TAB 04/05/25 Levodopa W/Carbidopa (Carbidopa/Levodopa) 1 Tab Tab, 2 TAB PO TID for TREATMENT OF PARKINSONS, TAB PER PATIENT, 25-100MG 2 TABS TID AND 50-200MG 1 TAB AT BEDTIME 12/19/22 Furosemide (Furosemide) 40 Mg Tab, 40 MG PO DAILY for 30 Days 10/25/21 Tamsulosin Hcl (Tamsulosin Hcl) 0.4 Mg Cap, 0.4 MG PO QPM for 30 Days, MG 10/25/21 Insulin Glargine (Basaglar Kwikpen) 100 Unit/Ml Inj, 50 UNIT SC DAILY, INJ 10/25/21 Duloxetine Hcl (Cymbalta) 60 Mg Cap, 1 CAP PO DAILY, #90 CAP 3 Refills 10/25/21 Aripiprazole (Abilify) 20 Mg Tab, 1 TAB PO DAILY, #30 TAB 1 Refill 10/25/21 Omeprazole (Gnp Omeprazole) 20 Mg Tab, 1 TAB PO DAILY, #90 TAB 1 Refill 10/25/21 Information Source: Patient, Emergency Med Personnel Mode of Arrival: EMS Severity: Mild Timing: Days Duration: Since onset Prehospital treatment: None Location: Mouth Developed: Other (UNCONTROLLED ORAL BLEEDING) Object: Other (ORAL BIOPSY) Wound Type: None Tetanus: Unknown History of: None Associated Signs and Symptoms: None Past Medical History PAST MEDICAL HISTORY: AFIB, DM, HTN Surgical History: Denies all surgeries Family History Family History: Reviewed,noncontributory to illness Social History Smoker: Non-Smoker Alcohol: Denies ETOH Use Drugs: Denies Drug Use Lives In: Home Constitutional: denies: chills, diaphoresis, fatigue, fever, malaise, sweats, weakness, others EENTM: reports: others (ORAL BLEEDING); denies: blurred vision, double vision, ear bleeding, ear discharge, ear drainage, ear pain, ear ringing, eye pain, eye redness, hearing loss, mouth pain, mouth swelling, nasal discharge, nose bl eeding, nose congestion, nose pain, photophobia, tearing, throat pain, throat swelling, voice changes Respiratory: denies: cough, hemoptysis, orthopnea, SOB at rest, shortness of breath, SOB with excertion, stridor, wheezing, others Cardiovascular: denies: chest pain, dizzy spells, diaphoresis, Dyspnea on exertion, edema, irregular heart beat, left arm pain, lightheadedness, palpitations, PND, syncope, others Gastrointestinal: denies: abdomen distended, abdominal pain, blood streaked bowels, constipated, diarrhea, dysphagia, difficulty swallowing, hematemesis, melena, nausea, poor appetite, poor fluid intake, rectal bleeding, rectal pain, vomiting, others Genitourinary: denies: burning, dysuria, flank pain, frequency, hematuria, incontinence, penile discharge, penile sore, pain, testicle pain, testicle swelling, urgency, others Neurological: denies: dizziness, fainting, headache, left sided numbness, left sided weakness, numbness, paresthesia, pre-existing deficit, right sided numbness, right sided weakness, seizure, speech problems, tingling, tremors, weakness, others Musculoskeletal: denies: back pain, gout, joint pain, joint swelling, muscle pain, muscle stiffness, neck pain, others Integumetry: denies: bruises, change in color, change in hair/nails, dryness, laceration, lesions, lumps, rash, wounds, others Allergic/Immunocompromised: denies: Difficulty Healing, Frequent Infections, Hives, Itching, others Hematologic/Lymphatic: denies: anemia, blood clots, easy bleeding, easy bruising, swollen glands, others Endocrine: denies: excessive hunger, excessive sweating, excessive thirst, excessive urination, flushing, intolerance to cold, intolerance to heat, unexplained weight gain, unexplained weight loss, others Psychiatric: denies: anxiety, bipolar disorder, depression, hopeless, panic disorder, schizophrenia, sleepless, suicidal, others All Other Systems: Reviewed and Negative Physical Exam General Appearance: No Apparent Distress, Normal HEENT: Normal ENT Inspection, Other (UNCONRTROLLED ORAL BLEEDING) Neck: Full Range of Motion, Non-Tender, Normal, Normal Inspection Respiratory: Chest Non-Tender, Lungs Clear, No Accessory Muscle Use, No Respiratory Distress, Normal Breath Sounds Cardiovascular: No Edema, No Murmur, No Gallop, Normal Peripheral Pulses, Regular Rate/Rhythm Breast Exam: Deferred Gastrointestinal: No Organomegaly, Non Tender, No Pulsatile Mass, Normal Bowel Sounds, Soft Genitalia: Deferred Pelvic: Deferred Rectal: Deferred Extremities: No calf tenderness, Normal capillary refill, Normal inspection, Normal range of motion, Non-tender, No pedal edema Musculoskeletal : Apperance: Normal Neurologic: Alert, product craftsman II-XII nml as Tested, No Motor Deficits, Normal Affect, Normal Mood, No Sensory Deficits Cerebellar Function: Normal Reflexes: Normal Skin: Dry, Normal Color, Warm Lymphatic: No Adenopathy Was a procedure done? Was a procedure done?: No Differential Diagnosis (INTG) Differential Diagnosis: Other (POST OPERATIVE COMPLICATION, ) X-Ray, Labs, Meds, VS Vital Signs Date Time Temp Pulse Resp B/P (MAP) Pulse Ox O2 Delivery O2 Flow Rate FiO2 07/13/25 07:48 98.3 125 18 140/75 96 98.3 Lab Test 07/13/25 08:39 Range/Units White Blood Count 11.2 H 4.4-10.8 10^3/uL Red Blood Count 4.46 L 4.5-5.90 10^6/uL Hemoglobin 11.7 L 13.5-17.5 g/dL Hematocrit 36.0 L 41.0-53.0 % Mean Corpuscular Volume 80.7 80.0-100.0 fL Mean Corpuscular Hemoglobin 26.2 L 28.0-32.0 pg Mean Corpuscular Hemoglobin Concent 32.5 32.0-36.0 g/dL Red Cell Distribution Width 15.6 H 11.8-14.3 % Platelet Count 234 140-450 10^3/uL Mean Platelet Volume 6.5 L 6.9-10.8 fL Neutrophils (%) (Auto) 74.8 37.0-80.0 % Lymphocytes (%) (Auto) 14.7 10.0-50.0 % Monocytes (%) (Auto) 8.2 0.0-12.0 % Eosinophils (%) (Auto) 2.0 0.0-7.0 % Basophils (%) (Auto) 0.3 0.0-2.0 % Neutrophils # (Auto) 8.4 1.6-8.6 10 ^3/uL Lymphocytes # (Auto) 1.7 0.4-5.4 10 ^3/uL Monocytes # (Auto) 0.9 0-1.3 10 ^3/uL Eosinophils # (Auto) 0.2 0-0.8 10 ^3/uL Basophils # (Auto) 0 0-0.2 10 ^3/uL Nucleated Red Blood Cells 0.0 % Sodium Level 140 136-145 mmol/L Potassium Level 4.4 3.5-5.1 mmol/L Chloride Level 102 98-107 mmol/L Carbon Dioxide Level 29 20-31 mmol/L Anion Gap 9 5-15 Blood Urea Nitrogen 17 9-23 mg/dL Creatinine 1.86 H 0.700-1.30 mg/dL Glomerular Filtration Rate Calc 39 >90 mL/min BUN/Creatinine Ratio 9.1 L 10.0-20.0 Serum Glucose 178 H 74-106 mg/dL Calcium Level 9.3 8.7-10.4 mg/dL Time of 1ST Reevaluation: 08:15 Reevaluation 1ST: Unchanged Patient Education/Counseling: Diagnosis, Treatment Family Education/Counseling: No Family Present SEPSIS Sepsis Screen Date sepsis recognized/suspect: Jul 13, 2025 Time Sepsis recognized/suspect: 739 Recent Procedure: No On Antibiotic Therapy: No Respiratory Rate >20: No Heart Rate >90: Yes Temp<36 C (96.8 F) or >38.3 C: No SBP <90 or MAP <65 mmHG: No New Acute Mental Status Change: No Is the patient on CPAP, BIPAP,: No Vital Signs Date Time Temp Pulse Resp B/P (MAP) Pulse Ox O2 Delivery O2 Flow Rate FiO2 07/13/25 07:48 98.3 125 18 140/75 96 98.3 Laboratory Tests Test 07/13/25 08:39 White Blood Count 11.2 10^3/uL (4.4-10.8) H Departure 1 Departure Time of Disposition: 10:54 (Patient with a bleeding post surgical wound. I applied surgicell and hemostasis was achieved. Will discharge home.) Impression: Primary Impression: Postoperative wound hemorrhage Disposition: 01 HOME / SELF CARE / HOMELESS Condition: Stable Additional Instructions: It is important to follow up with your oral surgeon this week. Discharged With: Self Critical Care Note Critical Care Time?: No Stability Stability form required: No Heart Score Heart Score: Heart Score Response (Comments) Value History N/A 0 EKG N/A 0 Age N/A 0 Risk Factors N/A 0 Troponin N/A 0 Total 0 I personally scribed for YASMEEN SHARP MD ([email or web address]) on 07/13/25 at 08:25. Electronically submitted by Maite Lozano ([email or web address]). YASMEEN SHARP MD Jul 13, 2025 08:25
[2025-07-13 08:54] LABS: Hematocrit 36.0 % (41.0-53.0); Hemoglobin 11.7 g/dL (13.5-17.5); Mean Corpuscular Hemoglobin 26.2 pg (28.0-32.0); Mean Corpuscular Volume 80.7 fL (80.0-100.0); Nucleated Red Blood Cells % 0.0 %
[2025-07-13 09:04] LABS: Chloride 102 mmol/L (98-107); Potassium 4.4 mmol/L (3.5-5.1); Sodium 140 mmol/L (136-145)
[2025-07-13 09:05] LABS: Anion Gap 9 (5-15); Calcium 9.3 mg/dL (8.7-10.4); Carbon Dioxide 29 mmol/L (20-31)
[2025-07-13 09:10] LABS: BUN/Creatinine Ratio 9.1 (10.0-20.0); Blood Urea Nitrogen 17 mg/dL (9-23); Glucose 178 mg/dL (74-106)
[2025-07-13 11:00] VITALS: BP 131/70; PULSE 106; RESP 16; TEMP 97.3; O2SAT 94
== END 2025-07-13 11:59 | disposition home or self-care (01) ==
LOC: ER 07:39 → EDBD 07:39 → ER 11:59
DX: T81.89XA Other complications of procedures, not elsewhere classified, initial encounter (principal); I48.91 Unspecified atrial fibrillation; E11.9 Type 2 diabetes mellitus without complications; I10 Essential (primary) hypertension; Z79.899 Other long term (current) drug therapy; Z79.4 Long term (current) use of insulin; Z79.01 Long term (current) use of anticoagulants; Z79.84 Long term (current) use of oral hypoglycemic drugs; Y92.89 Other specified places as the place of occurrence of the external cause
CPT/HCPCS: 36415; 80048; 85025